=== PATIENT | male | born 1945 | race Caucasian/White ===

== ENCOUNTER 2022-10-18 07:37 | Outpatient (CLI) | payer MEDICARE, BC ==
[~2022-10-18 07:37] MED LIST: GADOBUTROL 10 MMOL/10 ML VIAL ONE
[2022-10-18] MEDS ORDERED: GADOBUTROL 10 MMOL/10 ML VIAL IVP ONE (14:32)
--- NOTE | 2022-10-25 12:22 | MRI Report ---
PROCEDURE: MRI brain with and without contrast INDICATIONS: PITUITARY MACROADENOMA CONTRAST: gadavist 9.1ml TECHNIQUE: Noncontrast axial T1 spin echo, axial T2 fast spin echo, sagittal and axial FLAIR, coronal T2 fast sp in echo, axial gradient echo, axial diffusion and ADC through the brain. Dedicated imaging through t pituitary sella including dynamic contrast views were obtained. After the administration of contra st, axial and coronal T1 spin echo with fat saturation through the brain. COMPARISON: Prior exams unavailable. If and when prior exams become available, an addendum report ca n be generated. FINDINGS: Image quality: Excellent. Sella: Hyperintense tissue in the inferior sella without enhancement and partially extending into the sphenoid, consistent with fat packing. Within the sella, there is enhancing and nonenhancing soft ti ssue which may reflect residual pituitary tissue. The infundibulum is midline and enhances appropriat nisa. Additional soft tissue noted overlying the tuberculum sella measuring 1.0 x 0.4 cm. Lesion does appear to be in contact with the right anterior aspect of the optic chiasm without displacement as we ll as the supraclinoid right ICA. CSF spaces: Basal cisterns are patent. No extra-axial fluid collections. Ventricles are normal in size and shape. Brain: Moderate atrophy and white matter chronic ischemic changes are present. There is hemosiderin s taining involving the right frontal cortex. No evidence of acute hemorrhage. No midline shift. Diffu wilber sequence unremarkable without acute infarct. Skull and face: Calvarial marrow is normal in signal. Orbits appear normal. Sinuses: Evidence of prior transsphenoidal hypophysectomy noted. Probable fat packing in the intrasel lar sphenoid. IMPRESSION: 1. 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 Midline infundibulum 2. 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 Moderate atrophy and white matter chronic ischemic change. 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
== END 2022-10-18 07:38 | disposition home or self-care (01) ==
LOC: DI 07:37
PROVIDERS: ATTEND Neurological Surgery
DX: D35.2 Benign neoplasm of pituitary gland (principal); G93.89 Other specified disorders of brain; G31.89 Other specified degenerative diseases of nervous system; I67.82 Cerebral ischemia
CPT/HCPCS: 70553; A9585

== ENCOUNTER 2023-10-03 18:02 | Emergency (ER) | payer MEDICARE, BC ==
--- NOTE | 2023-10-03 19:21 | ED Physician Documentation ---
PD HPI HEAD INJURY - Stated complaint Stated Complaint: FALL/HIT HEAD - Chief complaint Chief Complaint: Trauma Hd/Nk - History obtained from History obtained from: Patient - History of Present Illness Mechanism of head injury: Fell Where head injury occurred: Home Timing - onset: How many hours ago (2) Pain level max: 4 Pain level now: 3 Location of injury: Back Quality of pain: Pain Associated symptoms: No: LOC, AMS, Amnesia, Nausea / vomiting, Neck pain, Paresthesias, Seizures Contributing factors: Anticoagulated. No: Intoxicated - Additional information Additional information: Patient is an 78-year-old male who takes Plavix who was at home in his garage when he slipped fell backwards landing on his buttock, he then fell backwards again and struck his head on his car. Has an abrasion to the posterior aspect of the head. He went to the walk-in clinic and was sent here for CT scan. No loss of consciousness. No altered mental status, no vomiting, neck pain, paresthesias, seizures. Nothing makes it better or worse. Not intoxicated. Review of Systems Constitutional: denies: Fever GI: denies: Vomiting Neurologic: denies: Seizure PD PAST MEDICAL HISTORY - Past Medical History Past Medical History: Yes Cardiovascular: Hypertension, Coronary artery disease, [place] Respiratory: Sleep apnea, CPAP use Neuro: None Endocrine/Autoimmune: HyPOthyroidism GI: None : Benign prostate hypertrophy HEENT: None Psych: None Musculoskeletal: None Derm: None - Past Surgical History Past Surgical History: Yes Cardiovascular: Coronary stent - Present Medications Home Medications: Ambulatory Orders Medication Instructions Recorded Confirmed Cholecalciferol (Vitamin D3) 50 mcg PO DAILY 10/03/23 10/03/23 [Vitamin D3] Clopidogrel [Plavix] 75 mg PO DAILY 10/03/23 10/03/23 Finasteride [Proscar] 5 mg PO DAILY 10/03/23 10/03/23 Levocetirizine Dihydrochloride 5 mg PO BID 10/03/23 10/03/23 [Xyzal] Levothyroxine Sodium [Synthroid] 175 mcg PO DAILY 10/03/23 10/03/23 Losartan Potassium 25 mg PO BID 10/03/23 10/03/23 Rosuvastatin Calcium [Crestor] 40 mg PO DAILY 10/03/23 10/03/23 Tamsulosin [Flomax] 1 cap PO DAILY 10/03/23 10/03/23 Testosterone Cypionate 100 mg IM Q14D 10/03/23 10/03/23 Triamterene/Hydrochlorothiazid 1 each PO DAILY 10/03/23 10/03/23 [Triamterene-Hctz 37.5-25 mg Cp] Turmeric 400 mg PO DAILY 10/03/23 10/03/23 Zinc Gluconate [Zinc] 50 mg PO DAILY 10/03/23 10/03/23 - Allergies Allergies/Adverse Reactions: Allergies Allergy/AdvReac Type Severity Reaction Status Date / Time Sulfa (Sulfonamide Allergy Unknown Verified 10/03/23 18:11 Antibiotics) - Social History Does the pt smoke?: No Smoking Status: Former smoker Does the pt drink ETOH?: Yes Does the pt have substance abuse?: Yes Substance Use and Type: CBD oil / Products - Immunizations Immunizations are current?: Yes - POLST Patient has POLST: No PD ED PE NORMAL - Vitals Vital signs reviewed: Yes - General General: Alert and oriented X 3, No acute distress - HEENT HEENT: PERRL, EOMI, Moist mucous membranes, Pharynx benign, Dentition benign, Other (Small abrasion to the occiput. No palpable skull fractures. No scalp hematoma. 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, No motor deficit, No sensory deficit, Normal speech Eye Opening: Spontaneous Motor: Obeys Commands Verbal: Oriented GCS Score: 15 - Psych Psych: Normal mood, Normal affect Results - Vitals Vitals: Vital Signs - 24 hr 10/03/23 18:12 Temperature 36.8 C Heart Rate 64 Respiratory 16 Rate Blood Pressure 170/74 H O2 Saturation 98 Oxygen O2 Source Room air - Rads (name of study) head ct Relevant Findings:: Final report received, See rad report PD Medical Decision Making - ED course Complexity details: reviewed results, re-evaluated patient, considered differential, d/w patient ED course: Head CT performed as the patient is on Plavix. There are no acute findings on head CT. Unknown last tetanus shot so a Tdap was given. Wounds were cleansed and bandaged. No lacerations to repair. Will continue supportive care and have him follow-up with his doctor as needed for any further care. Head injury instructions given at bedside. Patient counseled regarding signs and symptoms for which I believe and urgent re-evaluation would be necessary. Patient with good understanding of and agreement to plan and is comfortable going home at this time This document was made in part using voice recognition software. While efforts are made to proofread this document, sound alike and grammatical errors may occur. Departure - Departure Disposition: 01 Home, Self Care Clinical Impression: Closed head injury Qualifiers: Encounter type: initial encounter Qualified Code(s): S09.90XA - Unspecified injury of head, initial encounter Scalp abrasion Qualifiers: Encounter type: initial encounter Qualified Code(s): S00.01XA - Abrasion of scalp, initial encounter Condition: Stable Instructions: ED Head Injury Closed Follow-Up: your,doctor as needed [Other] Comments: Your head CT does not show any acute abnormalities today. Keep the wound clean. You were given a tetanus shot today. Please return if you worsen including vomiting, seizures or other new or worrisome symptoms. Forms: PCP List
--- NOTE | 2023-10-03 19:30 | CT Report ---
PROCEDURE: Head WO INDICATIONS: fall, head injury TECHNIQUE: Noncontrast 4.5 mm thick angled axial sections acquired from the foramen magnum to the vertex. For r adiation dose reduction, the following was used: automated exposure control, adjustment of mA and/or kV according to patient size. COMPARISON: MRI brain dated 10/18/2022 FINDINGS: Image quality: Excellent. CSF spaces: Basal cisterns are patent. No extra-axial fluid collections. The ventricles are symmet angelica in size and shape. Brain: No intracranial bleeds or masses. There is cerebral volume loss for age, with resultant vent ricular and sulcal prominence. There are periventricular and deep white matter chronic small vessel ischemic changes. There is intracranial internal carotid artery atherosclerosis. Skull and face: Calvarium and visualized facial bones appear intact, without suspicious lesions. Sinuses: Visualized sinuses and mastoids are clear. IMPRESSION: No acute intracranial pathology. No acute skull fracture. Reviewed by: Jack Hicks MD on 10/03/2023 7:29 PM PDT Approved by: Jack Hicks MD on 10/03/2023 7:29 PM PDT Station ID: [id number]
[2023-10-03] MEDS: TETANUS/DIPHTHERIA/PERTUSSIS 0.5 ML SYRINGE IM ONE (19:36)
[2023-10-03 19:44] VITALS: BP 145/78; O2SAT 97
== END 2023-10-03 19:43 | disposition home or self-care (01) ==
LOC: ED 18:02
DX: S09.90XA Unspecified injury of head, initial encounter (principal); S00.01XA Abrasion of scalp, initial encounter; W01.0XXA Fall on same level from slipping, tripping and stumbling without subsequent striking against object, initial encounter; Y92.015 Private garage of single-family (private) house as the place of occurrence of the external cause; I10 Essential (primary) hypertension; I25.10 Atherosclerotic heart disease of native coronary artery without angina pectoris; E03.9 Hypothyroidism, unspecified; I25.2 Old myocardial infarction; Z23 Encounter for immunization; Z79.02 Long term (current) use of antithrombotics/antiplatelets; Z79.899 Other long term (current) drug therapy; Z87.891 Personal history of nicotine dependence
CPT/HCPCS: 90471; 99283; 99284